=== PATIENT | female | born 1975 | race Caucasian/White ===

== ENCOUNTER 2019-11-12 05:30 | Day surgery (SDC) | payer MEDICAID ==
[2019-11-08 12:39] LABS: CLARITY,URINE CLEAR (Clear); COLOR,URINE YELLOW (Yellow); GLUCOSE, URINE NEGATIVE (Neg); KETONES,URINE NEGATIVE (Neg); LEUKOCYTE ESTERASE ,URINE NEGATIVE (Neg); NITRITES, URINE NEGATIVE (Neg); OCCULT BLOOD,URINE NEGATIVE (Neg); PROTEIN,URINE NEGATIVE (Neg); UROBILINOGEN,URINE 0.2 E.U/dL (0.2-1.0)
[2019-11-08 12:40] LABS: UA COLLECTION TYPE CLN CATCH MIDSTREAM
[2019-11-08 12:41] LABS: BASOPHILS % (AUTO) 0.6 % (0-1); EOSINOPHILS # (AUTO) 0.1 X10'3 (0-0.9); EOSINOPHILS % (AUTO) 1.1 % (0-6); LYMPHOCYTES # (AUTO) 2.5 X10'3 (1.1-4.8); LYMPHOCYTES % (AUTO) 32.4 % (21-51); MEAN CORPUSCULAR HEMOGLOBIN 29.9 PG (27.0-31.0); MEAN CORPUSCULAR HGB CONC 33.9 g/dL (33.0-36.5); MEAN CORPUSCULAR VOLUME 88.1 FL (78-98); MEAN PLATELET VOLUME 8.7 FL (7.4-10.4); MONOCYTES # (AUTO) 0.7 X10'3 (0-0.9); NEUTROPHILS # (AUTO) 4.4 X10'3 (1.8-7.7); NEUTROPHILS % (AUTO) 56.9 % (42-75); PRE OP HEMATOCRIT 41.2 % (35.0-45.0); PRE OP PLATELET COUNT 265 X10'3 (140-440); RED BLOOD COUNT 4.68 X10'6 (4.20-5.60); RED CELL DISTRIBUTION WIDTH 14.3 % (11.5-14.5)
[2019-11-08 12:56] LABS: PRE OP PROTIME 9.9 SECONDS (9.0-12.0)
[2019-11-08 12:58] LABS: ALBUMIN/GLOBULIN RATIO 1.3 (1.1-1.5); ALKALINE PHOSPHATASE 50 IU/L (46-116); BLOOD UREA NITROGEN 12 MG/DL (7-18); CALCIUM 9.1 MG/DL (8.5-10.1); CHLORIDE 104 MMOL/L (99-107); CREATININE 0.75 MG/DL (0.40-0.90); PRE OP ALT 28 U/L (30-65); PRE OP ANION GAP 5 (8-16); PRE OP AST 25 U/L (10-37); PRE OP BILIRUB, TOTAL 0.4 MG/DL (0.0-1.0); PRE OP GLUCOSE 102 MG/DL (70-104); PRE OP POTASSIUM 3.8 MMOL/L (3.4-5.1); PRE OP SODIUM 139 MMOL/L (135-145); TOTAL CARBON DIOXIDE 29.7 MMOL/L (24-32); TOTAL PROTEIN 7.1 G/DL (6.4-8.2); eGFR 84 ML/MIN
[2019-11-08 13:06] LABS: HCG SERUM QL NEGATIVE
[2019-11-12] VITALS (13 sets, daily range): BP systolic 99–123; BP diastolic 51–72
[~2019-11-12] VITALS: Ht 165.1 cm; Wt 84.3 kg
[~2019-11-12 05:30] MED LIST: CART1TAB4 PO; TURMERIC/CURCUMIN PO; ceFOXitin sod/dextrose 2g/50ml 50 ML IV ONE; famotidine 20mg tablet PO ONE; ringers solution, lacted 1,000 ML IV SCH
[2019-11-12] MEDS ORDERED: BUPIVAcaine/PF 2.5 mg/ml (0.25%) 30ml vial ONE (06:49)
[2019-11-12] MEDS ORDERED: fentaNYL/PF 50MCG/1 ML 2ML syringe ONE ×2 (07:14→10:00)
[2019-11-12] MEDS ORDERED: midazolam 2 mg/2 ml injection ONE (07:14)
[2019-11-12] MEDS ORDERED: ondansetron/PF 4mg/2ml inj ONE (07:15)
[2019-11-12] MEDS ORDERED: rocuronium 10mg/ml inj IV ONE (07:15)
[2019-11-12] MEDS ORDERED: propofol inj 20 ML IV ONE (07:15)
[2019-11-12] MEDS ORDERED: LIDOcaine 2% (20mg/ml) 5ml vial ONE (07:15)
[2019-11-12] MEDS ORDERED: dexamethasone sod phosphate 4mg/ml inj. ONE (07:15)
[2019-11-12] MEDS ORDERED: ringers solution, lacted 1,000 ML IV SCH (07:19)
[2019-11-12] MEDS ORDERED: hydrALAZINE 20mg/ml inj. IV PRN (07:20)
[2019-11-12] MEDS ORDERED: labetalol 20mg/4ml (5mg/ml) syringe IV PRN (07:20)
[2019-11-12] MEDS ORDERED: morphine 4 MG/ML inj SYRINge IV PRN (07:20)
[2019-11-12] MEDS ORDERED: ondansetron/PF 4mg/2ml inj IV PRN (07:20)
[2019-11-12] MEDS ORDERED: morphine 2 MG/ML inj. syringe IV PRN (07:20)
[2019-11-12] MEDS ORDERED: fentaNYL/PF 50MCG/1 ML 2ML syringe IV PRN ×2 (07:20)
[2019-11-12] MEDS ORDERED: atropine 0.4 mg/ml 20ml vial ONE (09:11)
[2019-11-12] MEDS ORDERED: glycopyrrolate 0.2mg/ml inj ONE (10:00)
[2019-11-12] MEDS ORDERED: neostigmine methylsulfate 1 MG/ML 10ml vial ONE (10:00)
--- NOTE | 2019-11-12 10:30 | NUR ---
Received from OR via BED , accompanied by Anesthesiologist DR sarabia and report given by Anesthesiolgist. PATIENT WAKING UP,denies pain, V/S WNL, NEUROVASCULAR CHECKS INTACT, 20G PIV LUE, SCD ON, lap sight and peripad clean and dry no signs or symptoms of complications or excessive drainage
[2019-11-12] MEDS ORDERED: HYDROcodone/acetaminophen 10/325mg tab PO ONE (12:05)
--- NOTE | 2019-11-12 12:50 | NUR ---
PATIENT A&OX4, DENIES PAIN, V/S WNL, NEUROVASCULAR CHECKS INTACT, 20G PIV RUE D/C WITH NO COMPLICATIONS OBSERVED, SCD OFF, LAP SIGHTS OF ABDOMEN CDI. FRESH GLADYS PAD GIVEN TO PATIENT. I HAVE REVIEWED D/C INSTRUCTIONS WITH PATIENT AND FAMILY AND THEY HAVE VERBALIZED UNDERSTANDING. PATIENT GIVEN SCRIPT FOR [facility] AND D/C HOME WITH FAMILY TO TRANSPORT AND ALL BELONGINGS..
== END 2019-11-12 12:50 | disposition home or self-care (01) ==
LOC: PAS 05:30
PROVIDERS: ATTEND Obstetrics & Gynecology
DX: D25.1 Intramural leiomyoma of uterus (principal); N87.9 Dysplasia of cervix uteri, unspecified; N80.0 Endometriosis of uterus; D27.0 Benign neoplasm of right ovary; M19.039 Primary osteoarthritis, unspecified wrist; E66.9 Obesity, unspecified; Z68.30 Body mass index [BMI] 30.0-30.9, adult; Z87.891 Personal history of nicotine dependence; Z79.01 Long term (current) use of anticoagulants; Z98.890 Other specified postprocedural states; Z79.899 Other long term (current) drug therapy
CPT/HCPCS: 36415; 58571; 80053; 81003; 82948; 84703; 85025; 85610; 85730; C1758; J0461; J0694; J1100; J2001; J2250; J2270; J2405; J2704; J2710; J3010; J3490; J7120; S2900; A4618; A7000

== ENCOUNTER 2021-12-08 05:32 | Day surgery (SDC) | payer MEDICAID ==
[2021-12-03 16:09] LABS: BASOPHILS % (AUTO) 0.4 % (0-1); EOSINOPHILS # (AUTO) 0.2 X10'3 (0-0.9); EOSINOPHILS % (AUTO) 2.9 % (0-6); LYMPHOCYTES # (AUTO) 1.8 X10'3 (1.1-4.8); LYMPHOCYTES % (AUTO) 32.1 % (21-51); MEAN CORPUSCULAR HEMOGLOBIN 29.2 PG (27.0-31.0); MEAN CORPUSCULAR HGB CONC 33.8 g/dL (33.0-36.5); MEAN CORPUSCULAR VOLUME 86.1 FL (78-98); MEAN PLATELET VOLUME 8.9 FL (7.4-10.4); MONOCYTES # (AUTO) 0.5 X10'3 (0-0.9); MONOCYTES % (AUTO) 9.5 % (2-12); NEUTROPHILS # (AUTO) 3.1 X10'3 (1.8-7.7); NEUTROPHILS % (AUTO) 55.1 % (42-75); PRE OP HEMATOCRIT 37.3 % (35.0-45.0); PRE OP HEMOGLOBIN 12.6 g/dL (12.0-16.0); PRE OP PLATELET COUNT 213 X10'3 (140-440); RED BLOOD COUNT 4.33 X10'6 (4.20-5.60); RED CELL DISTRIBUTION WIDTH 14.5 % (11.5-14.5)
[2021-12-03 16:15] LABS: ALBUMIN 3.7 G/DL (3.4-5.0); ALBUMIN/GLOBULIN RATIO 1.1 (1.1-1.5); ALKALINE PHOSPHATASE 52 IU/L (46-116); BLOOD UREA NITROGEN 17 MG/DL (7-18); BUN/CREATININE RATIO 24.6 (6.6-38.0); CALCIUM 8.7 MG/DL (8.5-10.1); CHLORIDE 104 MMOL/L (99-107); CREATININE 0.69 MG/DL (0.40-0.90); PRE OP ALT 32 U/L (30-65); PRE OP ANION GAP 11 (8-16); PRE OP AST 24 U/L (10-37); PRE OP BILIRUB, TOTAL 0.3 MG/DL (0.0-1.0); PRE OP GLUCOSE 105 MG/DL (70-104); PRE OP POTASSIUM 3.9 MMOL/L (3.4-5.1); PRE OP SODIUM 140 MMOL/L (135-145); TOTAL CARBON DIOXIDE 24.7 MMOL/L (24-32); TOTAL PROTEIN 7.2 G/DL (6.4-8.2); eGFR > 90 ML/MIN
[2021-12-08] VITALS (7 sets, daily range): BP systolic 114–139; BP diastolic 58–94
[~2021-12-08] VITALS: Ht 165.1 cm; Wt 95.0 kg
[~2021-12-08 05:32] MED LIST changes: +ACET-1008 PO; -CART1TAB4 PO; +NAPR220T67 PO; +OXYC-150 PO; -TURMERIC/CURCUMIN PO; +acetaminophen 325mg tablet PO ONE; -ceFOXitin sod/dextrose 2g/50ml 50 ML IV ONE; +cefazolin/dext.iso 2gm/50ml IV ONE; +celeCOXIB 100mg capsule PO ONE; +gabapentin 300mg capsule PO ONE; +metoclopramide 5 mg/ml inj IV ONE; +oxyCODONE SR 10mg (sust. release) tab -2 tabs (20mg) PO ONE; +tranexamic acid inj. 1,000 MG in 0.7% saline 100 ML PMX IV ONE; +vancomycin 1,500 MG in NS 300ml IV soln IV ONE
[2021-12-08] MEDS ORDERED: FENTANYL CITRATE/PF 50 MCG/1 ML VIAL ONE (07:17)
[2021-12-08] MEDS ORDERED: midazolam 1 mg/ML 2ml injection ONE (07:22)
[2021-12-08] MEDS ORDERED: cloNIDine hcl/PF 100mcg/ml inj ONE (07:23)
--- NOTE | 2021-12-08 07:40 | NUR ---
PT ARRIVED TO RECOVERY ROOM ACCOMPANIED BY DR CARROLL-ANESTHESIA REPORT GIVEN, VSS, PT WAKING UP, DENIES PAIN, +2 PULSES BILAT TO BLE, CSM-INTACT, DENIES PAIN, PIV 20G TO LUE, ICE TO KNEE, BANDAID TO RIGHT THIGH-CDI
[2021-12-08] MEDS ORDERED: acetaminophen 1,000mg/100ml IV 100 ML IV SCH (07:45)
[2021-12-08] MEDS ORDERED: ondansetron/PF 4mg/2ml inj ONE (07:54)
[2021-12-08] MEDS ORDERED: propofol inj 20 ML IV ONE (07:54)
[2021-12-08] MEDS ORDERED: dexamethasone sod phosphate 4mg/ml inj. ONE (07:54)
[2021-12-08] MEDS ORDERED: ROPIVAcaine 0.5% (5mg/ml) 30ml vial ONE (07:54)
[2021-12-08] MEDS ORDERED: LIDOcaine 2% (20mg/ml) 5ml vial ONE (07:54)
[2021-12-08] MEDS ORDERED: proCHLORperazine 10 MG/2 ml inj IV PRN (07:55)
[2021-12-08] MEDS ORDERED: morphine 4 MG/ML inj SYRINge IV PRN (07:55)
[2021-12-08] MEDS ORDERED: meperidine/PF 25mg/ml syringe IV PRN ×3 (07:55)
[2021-12-08] MEDS ORDERED: morphine 2 MG/ML inj. syringe IV PRN (07:55)
[2021-12-08] MEDS ORDERED: ringers solution, lacted 1,000 ML IV SCH (07:55)
[2021-12-08] MEDS ORDERED: ondansetron/PF 4mg/2ml inj IV PRN (07:55)
--- NOTE | 2021-12-08 08:40 | NUR ---
PT UP AND DRESSED, IV TYLENOL GIVEN FOR SOME KNEE PAIN, CSM-INTACT, +2 PULSES BLE, SKIN-CDI, VSS, PIV D/CD-CANULA INTACT, SCDS OFF, PT GIVEN D/C INSTRUCTIONS-ALL QUESTIONS ANSWERED, TAKEN VIA W/C TO FAMILY FOR TRANSPORT HOME.
== END 2021-12-08 08:40 | disposition home or self-care (01) ==
LOC: PAS 05:32
PROVIDERS: ATTEND Orthopaedic Surgery
DX: T84.82XA Fibrosis due to internal orthopedic prosthetic devices, implants and grafts, initial encounter (principal); G89.18 Other acute postprocedural pain; Z20.822 Contact with and (suspected) exposure to COVID-19; Z79.899 Other long term (current) drug therapy; Z87.891 Personal history of nicotine dependence; Z72.89 Other problems related to lifestyle; Y83.8 Other surgical procedures as the cause of abnormal reaction of the patient, or of later complication, without mention of misadventure at the time of the procedure; Y92.89 Other specified places as the place of occurrence of the external cause
CPT/HCPCS: 27570; 36415; 64447; 76942; 80053; 82948; 85025; J0131; J0735; J1100; J2250; J2405; J2704; J2765; J2795; J3010; J3370; J3490; J7040; J7120; U0003; U0005; Z7506; Z7512; A4618

== ENCOUNTER 2025-06-11 14:01 | Outpatient (CLI) | payer MEDICAID ==
[~2025-06-11 14:01] MED LIST changes: -acetaminophen 325mg tablet PO ONE; -cefazolin/dext.iso 2gm/50ml IV ONE; -celeCOXIB 100mg capsule PO ONE; -famotidine 20mg tablet PO ONE; -gabapentin 300mg capsule PO ONE; -metoclopramide 5 mg/ml inj IV ONE; -oxyCODONE SR 10mg (sust. release) tab -2 tabs (20mg) PO ONE; -ringers solution, lacted 1,000 ML IV SCH; -tranexamic acid inj. 1,000 MG in 0.7% saline 100 ML PMX IV ONE; -vancomycin 1,500 MG in NS 300ml IV soln IV ONE
--- NOTE | 2025-06-11 18:28 | RADIOLOGY REPORT ---
EXAM: MR MRI UPPER EXTREMITY LEFT INDICATION: PAIN IN LEFT SHOULDER TECHNIQUE: Multiplanar, multisequence MR images of the left shoulder were obtained in the absence of gadolinium contrast material. COMPARISON: None FINDINGS: [CORACOACROMIAL ARCH]: Mild degenerative change of the acromioclavicular joint. Intact coracoclavicular ligaments. Intact coracoacromial ligaments. No subacromial/subdeltoid bursal fluid. [ROTATOR CUFF]: Moderate to severe tendinosis of the superior rotator cuff without discrete measurable full-thickness tear. Insertional cysts of the superolateral humeral head [BICEPS TENDON]: Intact without tenosynovitis. [LABRUM]: Intact. [CARTILAGE]: No measurable cartilage defect. [GLENOHUMERAL JOINT]: No joint effusion. No intra-articular body. [BONES]: No acute fracture, osseous contusion, or aggressive focal osseous lesion. [MUSCLES]: Normal muscle bulk of the rotator cuff muscles. [NEUROVASCULAR/LYMPH NODES]: Normal. [OTHER]: None. IMPRESSION: 1. Moderate to severe tendinosis of the superior rotator cuff without discrete measurable full-thickness tear. 2. Mild degenerative change of the acromioclavicular joint.
== END 2025-06-11 23:59 | disposition home or self-care (01) ==
LOC: MRI 14:01
PROVIDERS: ATTEND Student in an Organized Health Care Education/Training Program
DX: M19.012 Primary osteoarthritis, left shoulder (principal); M25.512 Pain in left shoulder; M75.102 Unspecified rotator cuff tear or rupture of left shoulder, not specified as traumatic
CPT/HCPCS: 70551; 73221